=== PATIENT | male | born 1940 | race Caucasian/White ===

== ENCOUNTER → 2018-02-12 | Outpatient (CLI) | payer OTHER ==
[~2018-02-12] MED LIST: B12INJ IM; CALCIUM-MAGNES1 EAC5 PO; CENTRUM SILVER1 EACH PO; FISH OIL OMEGA1 EAC1 PO; GLUCOSAMINE 1,1 EACH PO; LEVOTHYROXIN0.025 MG PO; PRILOSEC20 MG PO; SLOW RELEASE I140 MG PO; VASOTEC 2.5MG2.5 M1 PO; VITAMIN D2000 UNIT PO; [UNRECOGNIZED DRUG - OTHER] PO
== END ==
LOC: CAT 14:03
DX: Z13.6 Encounter for screening for cardiovascular disorders (principal); E78.00 Pure hypercholesterolemia, unspecified

== ENCOUNTER 2018-03-10 14:40 | Inpatient (IN) | payer OTHER, BC ==
[~2018-03-10] VITALS: Ht 185.4 cm; Wt 89.8 kg
--- NOTE | ~2018-03-10 | HC ---
[facility] [place] [address] CONSULTATION Name: CONNIE MEADOWS Room #: 454-P [facility] IN ..#: [id number] Admission: 03/10/18 Attend Phys: Ralph Neville MD Discharge: 03/11/18 Date of : 40 Report #: [id number] THIS REPORT FOR: //name// CC: Gary Neville MD HISTORY OF PRESENT ILLNESS: This patient is known to me from longstanding diagnosis of a refractory anemia with ring sideroblasts dating back to 2+ years. Over the past month, he has noticed increased shortness of breath with his usual exercise program and went and saw his family physician. He was referred to refueler for evaluation and over the weekend as his dyspnea worsened was told to come to the Emergency Room. He was originally seen by Dr. Kohli and had a bone marrow performed 2 years ago, which was suggestive of MDS, but not diagnostic. During this entire time, he has had hemoglobin in the 7-8 gram range and was tried earlier on injections of erythropoietin, which did not improve his anemia. He was not symptomatic. He has not previously had blood transfusions until this current hospitalization with hemoglobin of less than 7 grams. Following 1 unit of packed cells, he is comfortable at rest. His is present. PAST MEDICAL HISTORY: Significant for medically managed hypothyroidism. He had a prior thyroid cancer. He has had previous appendectomy. He is due for colonoscopy. SOCIAL HISTORY: He is a reformed smoker. He is a nondrinker. He is retired. ALLERGIES: None known. MEDICATIONS: As listed on the MFR. REVIEW OF SYSTEMS: As in history of present illness and significant for worsening shortness of breath with exertion. Prior to this, he was walking 20 miles a week without difficulty, though slower than in previous years. PHYSICAL EXAMINATION: GENERAL: Shows him to be alert and oriented. HEENT: Normocephalic with pallor. CARDIOVASCULAR: He has systolic murmur. CHEST: Clear. ABDOMEN: Soft with no palpable spleen. LYMPHATICS: No suspicious adenopathy. [facility] [address] [place] [address] CONSULTATION Name: CONNIE MEADOWS Room #: 454-P [facility] IN [facility].#: [id number] Admission: 03/10/18 Attend Phys: Ralph Neville MD Discharge: 03/11/18 Date of : 40 Report #: [id number] SKIN: Normal turgor. EXTREMITIES: Show lower extremity edema. NEUROLOGIC: No focal localizing signs. PSYCHIATRIC: Not agitated or confused. ASSESSMENT: Refractory anemia with ring sideroblasts. PLAN: He is to get up and walk in the tyson. If he is having no difficulties following recent transfusion with hemoglobin again approaching 7 grams, it is fine that he be discharged. We have discussed obtaining a repeat bone marrow to reevaluate his worsening anemia. His stool for occult blood is pending and obviously if he is having GI blood loss, this will be pursued as it has been several years since his last colonoscopy. He already has the scheduled followup appointment to see me in a few weeks, but this will be moved up accordingly. He is to call for further issues. Thanks for asking us to participate in his care. By: 1014 2239 Minal Mendoza MD /nt
[~2018-03-10 14:40] MED LIST changes: -LEVOTHYROXIN0.025 MG PO; +SYNTHROID25 MC1 PO
[2018-03-10 14:43] VITALS: BP 155/60
[2018-03-10 15:26] LABS: URINE CLARITY CLEAR; URINE COLOR YELLOW; URINE GLUCOSE-RANDOM* NEGATIVE (Negative); URINE PROTEIN (DIPSTICK) NEGATIVE (Negative)
[2018-03-10 15:27] LABS: MCH 38.4 pg (26.0-34.0); MCHC 33.9 g/dL (28.0-37.0); MCV 113.4 fL (80.0-100.0); PLATELET COUNT 344 thou/uL (150-400); RBC 1.66 mil/uL (4.50-6.00); URINE BILIRUBIN NEGATIVE (Negative); URINE BLOOD NEGATIVE (Negative); URINE KETONES NEGATIVE (Negative); URINE LEUKOCYTES-REFLEX 1+ (Negative); URINE NITRITE-REFLEX NEGATIVE (Negative); URINE UROBILINOGEN 0.2 E.U./dl (0.2-1.0); WBC 4.5 thou/uL (4.0-11.0)
[2018-03-10 15:30] LABS: HEMOGLOBIN 6.4 gm/dL (14.0-18.0)
[2018-03-10 15:31] LABS: HEMATOCRIT 18.8 % (42.0-52.0)
[2018-03-10 15:33] LABS: ANION GAP 9 mmol/L (7-16); BUN 31 mg/dL (7-18); CALCIUM 8.6 mg/dL (8.5-10.1); CHLORIDE 106 mmol/L (98-107); CO2 25 mmol/L (21-32); CREATININE 1.3 mg/dL (0.7-1.3); GLUCOSE 98 mg/dL (74-106); POTASSIUM 4.6 mmol/L (3.5-5.1); SODIUM 140 mmol/L (136-145)
[2018-03-10 15:34] LABS: CASTS None Seen /LPF (None Seen); CRYSTALS None Seen /LPF (None Seen); SQUAMOUS 0-3 Few /LPF (0-3)
[2018-03-10 15:35] LABS: BACTERIA-REFLEX None Seen /HPF (None Seen); URINE RBC 0-2 Rare /HPF (0-2); URINE WBC-REFLEX 6-15 Few /HPF (0-5)
[2018-03-10 15:42] LABS: TROPONIN-I <0.06 ng/mL (<0.06)
[2018-03-10 15:50] LABS: ABSOLUTE NEUTROPHILS 2.8 thou/uL (1.4-8.2); ANISOCYTOSIS 1+; MACROCYTES 1+
[2018-03-10 16:52] LABS: % SATURATION 62 % (20-39); IRON 129 ug/dL (65-175); TIBC 208 ug/dL (250-450)
[2018-03-10 16:55] VITALS: BP 117/60; BP 129/51; BP 129/56
[2018-03-10 17:41] VITALS: BP 129/53
[2018-03-10] MEDS ORDERED: MAGNESIUM CITR100 MG PO (18:08)
[2018-03-10] MEDS ORDERED: FLOMAX0.4 MG PO (18:11)
[2018-03-10] MEDS ORDERED: XYZBAC TABLET1 EACH PO (18:12)
[2018-03-10 18:13] VITALS: BP 129/53
[2018-03-10 19:14] VITALS: BP 137/58
--- NOTE | 2018-03-10 22:23 | EKG ---
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
[2018-03-11 04:10] VITALS: BP 116/58
[2018-03-11 06:07] LABS: HEMOGLOBIN 6.9 gm/dL (14.0-18.0); WBC 3.5 thou/uL (4.0-11.0)
[2018-03-11 06:08] LABS: HEMATOCRIT 20.1 % (42.0-52.0); MCH 37.4 pg (26.0-34.0); MCHC 34.4 g/dL (28.0-37.0); MCV 108.8 fL (80.0-100.0); RBC 1.85 mil/uL (4.50-6.00)
[2018-03-11 06:30] LABS: ALBUMIN 3.6 g/dL (3.4-5.0); CALCIUM 8.5 mg/dL (8.5-10.1); CREATININE 1.3 mg/dL (0.7-1.3); POTASSIUM 4.5 mmol/L (3.5-5.1); TOTAL BILIRUBIN 0.8 mg/dL (<0.1-1.0); TOTAL PROTEIN 6.1 g/dL (6.4-8.2)
[2018-03-11 08:29] VITALS: BP 139/63
[2018-03-11 10:34] LABS: ABSOLUTE RETIC COUNT 0.0352 10^6/uL; OBSERVED RETIC COUNT 1.87 % (0.6-2.6)
[2018-03-11 12:04] VITALS: BP 139/63
== END 2018-03-11 12:47 | disposition home or self-care (01) | DRG 811 ==
LOC: ER 14:40 → EROBS 16:11 → 4W 16:11
PROVIDERS: Student in an Organized Health Care Education/Training Program; ADMIT Family Medicine
PROC: 30233N1 Transfusion of Nonautologous Red Blood Cells into Peripheral Vein, Percutaneous Approach (ICD-10-PCS; principal; 2018-03-10)
DX: D46.1 Refractory anemia with ring sideroblasts (principal); E43 Unspecified severe protein-calorie malnutrition; Z79.899 Other long term (current) drug therapy; Z90.49 Acquired absence of other specified parts of digestive tract; Z87.891 Personal history of nicotine dependence
CPT/HCPCS: 10045

== ENCOUNTER → 2018-05-03 | Outpatient (CLI) | payer OTHER, BC ==
[~2018-05-03] VITALS: Ht 185.4 cm; Wt 83.9 kg
[~2018-05-03] MED LIST changes: +ALFUZOSIN HCL10 MG PO; -FISH OIL OMEGA1 EAC1 PO; +FISH OIL OMEGA1 EAC3 PO; +FLOMAX0.4 MG PO; +HYDROCHLOROTH12.5 M1 PO; +IBUPROFEN 200200 M1 PO; +MAGNESIUM CITR100 MG PO; +MAGNESIUM CITRATE PO; +MULTI VITAMIN1 EACH PO; +PROBIOTIC1 EAC1 PO; +UROXATRAL PO; +XYZBAC TABLET1 EACH PO
[2018-05-03 09:28] LABS: HEMATOCRIT 18.1 % (42.0-52.0); HEMOGLOBIN 6.3 gm/dL (14.0-18.0)
[2018-05-03 11:55] LABS: HEMOGLOBIN 6.5 gm/dL (14.0-18.0)
[2018-05-03 11:56] LABS: HEMATOCRIT 18.3 % (42.0-52.0)
--- NOTE | 2018-05-04 12:36 | P ---
[facility] [address] PROCEDURE REPORT Name: CONNIE MEADOWS Room #: REG [facility]#: [id number] Admission: 05/03/18 ������������������ Attend Phys: Zari Johnson MD Discharge: ������������������ Date of : 40 Report #: [id number] THIS REPORT FOR: //name// CC: ZARI WONG BRIEF HISTORY: The patient is a 78-year-old male with a history of multiple colon adenomas in the past. He also has anemia and myelodysplastic syndrome. He presents for high risk screening due to his history of multiple colon adenomas. PREOPERATIVE DIAGNOSIS: High risk screening secondary to multiple colon adenomas. POSTOPERATIVE DIAGNOSES: 1. Multiple diminutive colon polyps. 2. Moderate sigmoid diverticulosis coli. 3. Hemorrhoidal tags. MEDICATIONS: Deep sedation with propofol per anesthesia. SPECIMENS: 1. Diminutive cecal polyps x 2. 2. Diminutive polyp, mid transverse colon. 3. Diminutive polyp, distal transverse colon. 4. Diminutive polyp at 40 cm. ESTIMATED BLOOD LOSS: 3 mL. PROCEDURE: Colonoscopy to cecum and terminal ileum with biopsy. FINDINGS: Prior to propofol sedation, procedure of colonoscopy discussed with the patient as well as potential risks and its complications. He indicates he understands and desires to proceed. DESCRIPTION OF PROCEDURE: With the patient in left lateral decubitus position, digital examination was completed, which revealed no abnormalities. Subsequently, the Olympus video colonoscope was introduced in the rectum, advanced under direct vision to the cecum. Done with minimal difficulty. The cecum was reached, identified by the ileocecal valve and the appendiceal orifice. I was able to visualize the distal segment of the terminal ileum, which was inspected and noted to be unremarkable. At that point, the scope was slowly withdrawn and careful circumferential views obtained. Upon slow withdrawal of the scope, the prep was noted to be excellent. The mucosa was within normal limits, normal vascular pattern and normal light reflex. As we [facility] [place] [address] PROCEDURE REPORT Name: CONNIE MEADOWS Room #: REG [facility]#: [id number] Admission: 05/03/18 ������������������ Attend Phys: Zari Johnson MD Discharge: ������������������ Date of : 40 Report #: [id number] withdrew the scope, the prep was noted to be excellent. Two diminutive polyps were seen and removed with biopsy forceps from the cecum. Another diminutive polyp was removed with biopsy forceps in the mid transverse colon, another in the distal transverse colon and also one at 40 cm. Additional findings included moderate sigmoid diverticulosis coli without endoscopic evidence of diverticulitis. The scope was withdrawn in the rectum and no abnormalities were seen. Upon retroflexion, anal hemorrhoidal tags were seen. Scope was withdrawn. The patient tolerated the procedure well. CONDITION OF THE PATIENT UPON DISCHARGE: Following procedure, the patient drowsy. He will be discharged home when fully ambulatory. INSTRUCTIONS TO THE PATIENT AND FAMILY AT THE TIME OF DISCHARGE: A total of 5 diminutive polyps removed with biopsy forceps today. We will follow up the path and make further recommendations. If 3 or more are adenomas, he should return in 3 years; otherwise, he is to return in 5 years. I would base this recommendation to return in 3-5 years on the patient's overall health at that point in time. His last colonoscopy was nearly 3 years ago. Withdrawal time from the cecum was 11 minutes 27 seconds. ��������������������������������������������� <ELECTRONICALLY SIGNED> ���������������������������������������� By: Zari Johnson MD ��������������������������������������������� 05/04/18 1236 1127 2141 Zari Johnson MD /nt
--- NOTE | 2018-05-10 15:23 | PATH ---
[facility] [place] [address] PATHOLOGY RPT PROCEDURE Name: CONNIE MEADOWS Room #: REG [facility].#: [id number] ������������������ Admission: 05/03/18 ������������������ Date of : 40 Discharge: Report #: [id number] Path Case #: [id number] [facility] Accession Number: [id number] . 01 Material submitted: . PART A: POLYP AT CECUM X2 PART B: POLYP AT MID-TRANSVERSE COLON PART C: POLYP AT DISTAL TRANSVERSE COLON PART D: POLYP AT 40CM . 01 Clinical history: . Polyps, anemia. . 02 Diagnosis: A. Polyp x2, at cecum, endoscopic biopsy: - One fragment showing tubular adenoma without high-grade dysplasia. - Second one showing hyperplastic polyp without dysplasia. . B. Polyp, at mid transverse colon, endoscopic biopsy: - Compatible with a hyperplastic polyp. - Negative for dysplasia. . C. Polyp, at distal transverse, endoscopic biopsy: - Tubular adenoma. - Negative for high-grade dysplasia. . D. Polyp, at 40 cm, endoscopic biopsy: - Tubular adenoma. - Negative for high-grade dysplasia. (IUV:aleta; 05/06/2018) QMS/05/06/2018 . 02 Electronically signed: . Leida Klein MD, Pathologist NPI- [id number] . 01 Gross description: . A. Received in formalin labeled "Rubin Meadowsd, polyp at cecum x2" is a 0.8 x 0.4 x 0.2 cm aggregate of anderson-brown mucosa. The specimen is submitted in cassette A1. . B. Received in formalin labeled "Rubin Meadowsd, polyp at mid transverse colon" is a 0.4 x 0.4 x 0.2 cm fragment of anderson-brown mucosa. The specimen is submitted in cassette B1. . C. Received in formalin labeled "Venu, Castellanos, polyp at distal transverse colon" is a 0.4 x 0.3 x 0.2 cm fragment of anderson-brown mucosa. [address] [address] PATHOLOGY RPT PROCEDURE Name: CONNIE MEADOWS Room #: REG [facility].#: [id number] ������������������ Admission: 05/03/18 ������������������ Date of : 40 Discharge: Report #: [id number] Path Case #: [id number] The specimen is submitted in cassette C1. . D. Received in formalin labeled "Connie Meadows, polyp at 40 cm" is a 0.5 x 0.3 x 0.2 cm fragment of anderson-brown mucosa. The specimen is submitted in cassette D1. ([facility]; 05/05/2018) SY/[facility] . 02 Pathologist provided ICD-10: D12.0, K63.5, D12.3, D12.6 . 02 CPT . 125657, 907895, 691045, 091286 Specimen Comment: Report sent to / DR VARGAS Performed at: [address], [place] [id number] MD Ubaldo Haney MD Phone: [phone] Performed at: [address] [id number] MD Leida Klein MD Phone: [phone]
== END | disposition home or self-care (01) ==
LOC: GI 08:01
PROVIDERS: Anesthesiology; Specialist
DX: Z12.11 Encounter for screening for malignant neoplasm of colon (principal); K57.30 Diverticulosis of large intestine without perforation or abscess without bleeding; K64.4 Residual hemorrhoidal skin tags; D12.0 Benign neoplasm of cecum; D12.3 Benign neoplasm of transverse colon; K63.5 Polyp of colon; D12.5 Benign neoplasm of sigmoid colon; E03.9 Hypothyroidism, unspecified; G47.30 Sleep apnea, unspecified; Z86.010 Personal history of colon polyps; Z87.891 Personal history of nicotine dependence; Z90.49 Acquired absence of other specified parts of digestive tract; Z98.890 Other specified postprocedural states; Z79.899 Other long term (current) drug therapy
CPT/HCPCS: 62110; 62900

== ENCOUNTER → 2019-11-26 | Outpatient (CLI) | payer OTHER, BC ==
[~2019-11-26] MED LIST changes: +CENTRUM SILVER1 EAC2 PO; +CHEMO; +JADENU360 MG PO; +VITAMIN B122500 MCG PO; +VITAMIN D310 MC1 PO; +XYZAL5 MG PO; +ZINC30 MG PO
== END ==
LOC: SJCVCIMAG 12:49
PROVIDERS: ATTEND Internal Medicine Cardiovascular Disease
DX: I08.8 Other rheumatic multiple valve diseases (principal); I11.9 Hypertensive heart disease without heart failure; D46.9 Myelodysplastic syndrome, unspecified; R06.02 Shortness of breath

== ENCOUNTER → 2020-02-02 | Outpatient (CLI) | payer OTHER, BC ==
[~2020-02-02] MED LIST changes: +TRIAMTERENE/HCT1 CA1 PO; +[UNRECOGNIZED DRUG - OTHER] SUBQ
== END ==
LOC: SJCVCIMAG 13:50
PROVIDERS: ATTEND Internal Medicine Cardiovascular Disease
DX: I08.3 Combined rheumatic disorders of mitral, aortic and tricuspid valves (principal); I49.1 Atrial premature depolarization; I13.10 Hypertensive heart and chronic kidney disease without heart failure, with stage 1 through stage 4 chronic kidney disease, or unspecified chronic kidney disease; N18.9 Chronic kidney disease, unspecified; D63.1 Anemia in chronic kidney disease; D53.9 Nutritional anemia, unspecified; D46.9 Myelodysplastic syndrome, unspecified; R93.1 Abnormal findings on diagnostic imaging of heart and coronary circulation; G47.30 Sleep apnea, unspecified; Z79.899 Other long term (current) drug therapy; Z87.891 Personal history of nicotine dependence

== ENCOUNTER → 2020-04-06 | Outpatient (CLI) | payer OTHER, BC ==
[~2020-04-06] MED LIST changes: +FISH OIL 1,0001 EAC9 PO; +NASACORT10.8 ML NARES; +PROBIOTIC1 EAC7 PO; +TORSEMIDE20 MG PO; +VITAMIN B12-FO1 EAC1 PO
== END ==
LOC: SJCVC 09:46
PROVIDERS: ATTEND Internal Medicine Cardiovascular Disease
DX: I35.0 Nonrheumatic aortic (valve) stenosis (principal); I12.9 Hypertensive chronic kidney disease with stage 1 through stage 4 chronic kidney disease, or unspecified chronic kidney disease; N18.9 Chronic kidney disease, unspecified; D63.1 Anemia in chronic kidney disease; D53.9 Nutritional anemia, unspecified; E78.2 Mixed hyperlipidemia; D46.9 Myelodysplastic syndrome, unspecified; E03.9 Hypothyroidism, unspecified; G47.30 Sleep apnea, unspecified; Z87.891 Personal history of nicotine dependence; Z72.89 Other problems related to lifestyle; Z79.899 Other long term (current) drug therapy

== ENCOUNTER → 2020-04-08 | Outpatient (CLI) | payer OTHER, BC ==
[~2020-04-08] VITALS: Ht 185.4 cm; Wt 83.9 kg
[2020-04-08 07:13] VITALS: BP 124/56
[2020-04-08 07:44] LABS: HEMATOCRIT 24.1 % (42.0-52.0); MCH 31.1 pg (26.0-34.0); MCHC 33.3 g/dL (28.0-37.0); MCV 93.5 fL (80.0-100.0); RBC 2.58 mil/uL (4.50-6.00); RDW 23.5 % (10.5-14.5); WBC 6.4 thou/uL (4.0-11.0)
[2020-04-08 07:53] LABS: CALCIUM 9.1 mg/dL (8.5-10.1); CREATININE 1.9 mg/dL (0.7-1.3)
--- NOTE | 2020-04-08 10:07 | TEE ---
[facility] [place] [address] TRANSESOPHAGEAL ECHOCARDIOGRAM Name: CONNIE MEADOWS Room #: REG [facility]#: [id number] Admission: 04/08/20 Attend Phys: Freddie Garcia MD, Discharge: Date of : 40 Report #: [id number] THIS REPORT FOR: cc: Gary Patiño MD, John H. MD Santiago, Patrick MD [facility] ~ APPROVED REPORT Study performed: 04/08/2020 07:51:01 EXAM: Comprehensive 2D, Doppler, and color-flow Echocardiogram Patient Location: Out-Patient Room #: 9 Status: routine BSA: 2.08 HR: 75 bpm BP: 152/74 mmHg Rhythm: NSR Other Information Study Quality: Good Indications Aortic Valve Disease Echo Enhancing Agent Indication: Rule out Shunt Agent(s) / Amount(s) Used: Agitated Saline 7 cc 2D Dimensions LVOT Diam: 25.43 (18-24mm) Procedure After obtaining informed consent, patient underwent transesophageal echo in the [employer]. Type of Sedation : Conscious Sedation Sedation was administered by Nurse. Sedation was achieved intravenously with: Versed (3 mg) Fentanyl (50 mcg) Transesophageal probe was inserted and advanced into esophagus without difficulty by Freddie Garcia MD. Echo enhancement indication: R/O Septal defect. Echo enhancement agent administered: Agitated Saline [facility] [place] [address] TRANSESOPHAGEAL ECHOCARDIOGRAM Name: CONNIE MEADOWS Room #: REG [facility]#: [id number] Admission: 04/08/20 Attend Phys: Freddie Garcia, Discharge: Date of : 40 Report #: [id number] The MARIMAR was performed without complications. Throughout the procedure, the blood pressure, pulse oximetry, cardiac rhythm, and rate were monitored. The patient tolerated the procedure without adverse effects. Recovery from conscious sedation was uneventful and vital signs were stable. Left Ventricle The left ventricle is normal size. There is normal LV segmental wall motion. There is normal left ventricular wall thickness. The left ventricular systolic function is normal. The left ventricular ejection fraction is within the normal range. LVEF is 55-60%. Right Ventricle The right ventricle is normal size. The right ventricular systolic function is normal. Atria Left atrium is dilated. Interatrial septum is intact without evidence of ASD or PFO. Right atrium is dilated. Aortic Valve The aortic valve is normal in structure. Aortic valve is calcified. Trace aortic regurgitation. Severe aortic stenosis. Mitral Valve The mitral valve is normal in structure. Mild mitral regurgitation. No evidence of mitral valve stenosis. Tricuspid Valve The tricuspid valve is normal in structure. Trace tricuspid regurgitation. Pulmonic Valve The pulmonary valve is normal in structure. Great Vessels The aortic root is normal in size. Pericardium There is no pericardial effusion. <Conclusion> Consent was obtained and a timeout performed Bite block was placed [facility] [address] [place] [address] TRANSESOPHAGEAL ECHOCARDIOGRAM Name: CONNIE MEADOWS Room #: REG [facility]#: [id number] Admission: 04/08/20 Attend Phys: Freddie Garcia, Discharge: Date of : 40 Report #: [id number] Esophageal probe was advanced without difficulty Normal left ventricular size/wall thickness EF 55 to 60% Normal right ventricular size Mild biatrial enlargement Lleft atrial appendage, moderate size no evidence of mass or clot detected Color-flow Doppler study was performed of the aortic/mitral/tricuspid valve Aortic valve tricuspid with moderate calcification Severe aortic valve stenosis Aortic valve area estimated 0.8 cm by planimetry Aortic valve diameter 2.5 cm and aortic root at 2.6 cm in diameter Mild/central mitral valve insufficiency Small PFO detected by bubble study Trace tricuspid valve insufficiency No pericardial effusion Patient tolerated procedure well <ELECTRONICALLY SIGNED> By: Freddie Garcia MD, FACC 04/08/20 1007 1007 1007 Freddie Garcia MD, FACC /INF
--- NOTE | 2020-04-08 13:11 | NUR ---
PT AMBULATES TO NURSES STATION AND BACK FROM ROOM 5. GROIN REMAINS INTACT, NO HEMATOMA OR BLEEDING. PT TOLERATED WELL.
--- NOTE | 2020-04-09 10:36 | CATHLAB ---
[facility] [place] [address] INVASIVE PROCEDURE REPORT Name: CONNIE MEADOWS Room #: REG [facility].#: [id number] Admission: 04/08/20 Attend Phys: Freddie Garcia MD, Discharge: Date of : 40 Report #: [id number] THIS REPORT FOR: cc: Gary Patiño MD, John H. MD Mancuso, Gerald M. MD [facility] ~ APPROVED REPORT Study performed: 04/08/2020 07:33:18 Patient Details Patient Status: Out-Patient Room #: The patient is a 80 year-old male Event Personnel Terrance Dasilva Lock Tender, Sukumar Case RN RN, Lissa Barrera Monitor, María Elena Talley RTR, GARFIELD Scrub, Robyn Johnson RTR Textiles Printer Procedures Performed Art Access - R femoral artery* Louie Access - R femoral vein Hemostasis w/ Mynx 61785 Initial Mod Sed Same Phys/QHP Gr5y 261568 16774 Mod Sed Same Phys/QHP Ea 695924 Ascending Aortography Coronaries Angiography w/Rt Heart Cath [id number] RHCWCOR Indication Chest pain Procedure Narrative The Right Groin^ was infiltrated with 1% Lidocaine subcutaneous anesthesia. A PINNACLE 6FR Sheath #[id number] sheath was inserted into the RFA. Coronary angiography was performed using coronary diagnostic catheters. The right coronary system was accessed and visualized with a JL4 catheter. The left coronary system was accessed and visualized with a JL4 catheter. The left ventricle was accessed and visualized with a STR PIG catheter. There was no hematoma. Intraoperative Conscious Sedation Sedation start time: 921 Case end Time: 1008 Fentanyl 50 mcg Versed 1 mg Fluoro Time: 5.20 minutes [facility] [address] [place] [address] INVASIVE PROCEDURE REPORT Name: CONNIE MEADOWS Room #: [facility]#: [id number] Admission: 04/08/20 Attend Phys: Freddie Garcia, Discharge: Date of : 40 Report #: [id number] Dose: DAP 5768.50 cGycm2 583 mGy Contrast Type and Amount: Visipaque 55 ml Hemodynamics The right atrial mean pressure is 9 mmHg. The right ventricular pressure is 51/0 mmHg. The pulmonary artery pressure is 54/18 mmHg with a mean of 34 mmHg. The mean pulmonary capillary wedge pressure is 28 mmHg. The aortic pressure is 123/58 mmHg with a mean of 82 mmHg. The cardiac output using thermo method is 5.70 L/min. The cardiac index using thermo method is 2.74 L/min/m2. Conclusion #1. Successful right heart catheterization with cardiac output by thermodilution. See above hemodynamics. #2 supravalvular aortogram revealing significant and restricted aortic valve leaflet narrowing no significant aortic insufficiency. Aortic valve was not crossed due to significant critical aortic stenosis. #3 left main mildly disease giving rise to LAD and circumflex. #4 LAD moderate proximal calcification with an eccentric 60% proximal lesion well-preserved distal two thirds of this vessel which wraps the apex. #5 circumflex OM nondominant with mild ostial disease of 30 to 40%. #6 large dominant right coronary artery which is widely patent. Recommendations and plan: Continue aggressive risk factor modification. Will have further evaluation regarding TAVR for aortic valve replacement. <ELECTRONICALLY SIGNED> By: Terrance Dasilva MD, FACC 04/09/20 1036 1036 1036 Terrance Dasilva MD, FACC /INF
== END | disposition home or self-care (01) ==
LOC: CATH 06:28
PROVIDERS: ATTEND Internal Medicine
DX: R07.9 Chest pain, unspecified (principal); I25.10 Atherosclerotic heart disease of native coronary artery without angina pectoris; I08.3 Combined rheumatic disorders of mitral, aortic and tricuspid valves; I10 Essential (primary) hypertension; E03.9 Hypothyroidism, unspecified; D64.9 Anemia, unspecified; E78.5 Hyperlipidemia, unspecified; G47.30 Sleep apnea, unspecified; Z98.890 Other specified postprocedural states; Z79.899 Other long term (current) drug therapy; Z87.891 Personal history of nicotine dependence; Z90.49 Acquired absence of other specified parts of digestive tract